=== PATIENT | female | born 1945 | race Caucasian/White ===

== ENCOUNTER 2017-06-27 14:21 | Outpatient (CLI) | payer MEDICARE | END 2017-06-27 14:22 | disposition home or self-care (01) | LOC: BICMAMMO 14:21 | PROVIDERS: ATTEND Family Medicine | DX: Z12.31 Encounter for screening mammogram for malignant neoplasm of breast (principal); Z80.3 Family history of malignant neoplasm of breast | CPT/HCPCS: 77063; 77067 ==

== ENCOUNTER 2017-08-13 08:48 | Emergency (ER) | payer MEDICARE ==
[2017-08-13] MEDS ORDERED: Dextrose 50% Abboject 50 ML SYRINGE ONE (09:20)
[2017-08-13 09:43] LABS: #Basophils 0.1 thou/uL (0.0-0.2); #Eosinphils 0.3 thou/uL (0.0-0.7); #Lymphocytes 3.8 thou/uL (1.20-3.40); #Monocytes 0.9 thou/uL (0.11-0.59); #Neutrophils 5.6 thou/uL (1.40-6.50); %Basophils 1.1 % (0.0-1.0); %Eosinophils 2.9 % (0.0-10.0); %Monocytes 8.7 % (0.0-10.0); %Neutrophils 52.3 % (42.0-75.0); Hemoglobin 13.6 g/dL (12.0-16.0); Mean Corpuscular HGB CONC 32.7 g/dL (32.0-36.0); Mean Corpuscular Hemoglobin 30.8 pg (27.0-31.0); Mean Corpuscular Volume 94.1 fl (81.0-99.0); Mean Platelet Volume 8.4 fL (7.4-10.4); Platelet Count 366 thou/uL (130-400); RBC Distribution Width 12.5 % (11.5-14.5); White Blood Cell (WBC) Count 10.8 thou/uL (4.8-10.8)
[2017-08-13 10:01] LABS: ALT (SGPT) 11 U/L (8-55); AST (SGOT) 13 U/L (5-34); Albumin 4.1 g/dL (3.4-4.8); Alkaline Phosphatase 101 U/L (40-150); Anion Gap 12 mmol/L (10-20); BUN (Urea Nitrogen) 21 mg/dL (9.8-20.1); Bilirubin, Total 0.6 mg/dL (0.2-1.2); Calc. Creatinine Clearance 0 mL/min (70-130); Calcium 10.2 mg/dL (7.8-10.44); Carbon Dioxide 27 mmol/L (23-31); Chloride 107 mmol/L (98-107); Estimated GFR-MDRD 50; Globulin 3.1 g/dL (2.4-3.5); Magnesium 2.2 mg/dL (1.6-2.6); Potassium 3.9 mmol/L (3.5-5.1); Protein, Total 7.2 g/dL (6.0-8.3); Sodium 142 mmol/L (136-145)
[2017-08-13 10:02] LABS: Troponin I Less than 0.010 ng/mL (< 0.028)
--- NOTE | 2017-08-13 10:02 | RAD ---
CHEST ONE VIEW: History: Weakness. Comparison: 2011 FINDINGS: Lungs are slightly hypoinflated with vascular crowding. No focal airspace consolidation, pneumothorax or effusion. Old left sided rib fractures. No acute osseous abnormality. IMPRESSION: No acute intrathoracic abnormality. POS: [facility]
[2017-08-13 10:07] LABS: Glucose 54 mg/dL (83-110)
--- NOTE | 2017-09-21 22:13 | EKG ---
Test Reason : Blood Pressure : / mmHG Vent. Rate : 043 BPM Atrial Rate : 043 BPM P-R Int : 122 ms QRS Dur : 094 ms QT Int : 540 ms P-R-T Axes : 071 -02 017 degrees QTc Int : 456 ms Marked sinus bradycardia Abnormal ECG Confirmed by TRUMAN LAURENT D.O. ([id number]), editor news SHARON CENTENO ([id number]) on 09/21/2017 10:13:10 PM Referred By: MEHRAN Confirmed By:TRUMAN LAURENT D.O.
== END 2017-08-13 12:15 | disposition home or self-care (01) ==
LOC: ERS 08:48
DX: R00.1 Bradycardia, unspecified (principal); I48.91 Unspecified atrial fibrillation; E11.9 Type 2 diabetes mellitus without complications; I10 Essential (primary) hypertension; Z79.4 Long term (current) use of insulin; Z79.899 Other long term (current) drug therapy
CPT/HCPCS: 36416; 71045; 80053; 82553; 83605; 83735; 84484; 85025; 93005; 96374

== ENCOUNTER 2018-06-30 13:13 | Outpatient (CLI) | payer MEDICARE ==
--- NOTE | 2018-07-01 15:00 | MMO ---
FILMS COMPARED: The present examination has been compared to prior imaging studies performed at [facility] on 05/21/2013, 06/01/2014, 06/03/2015 and 06/06/2016. MAMMOGRAM FINDINGS: There are scattered fibroglandular densities. There are benign appearing calcifications seen in the left breast. There are no suspicious masses, calcifications or areas of architectural distortion. IMPRESSION: CALCIFICATIONS IN THE LEFT BREAST ARE BENIGN. A ROUTINE FOLLOW-UP MAMMOGRAM IN 1 YEAR IS RECOMMENDED. ACR BI-RADS Category 2 - Benign finding
== END 2018-06-30 13:14 | disposition home or self-care (01) ==
LOC: BICMAMMO 13:13
PROVIDERS: ATTEND Family Medicine
DX: Z12.31 Encounter for screening mammogram for malignant neoplasm of breast (principal); R92.1 Mammographic calcification found on diagnostic imaging of breast
CPT/HCPCS: 77063; 77067

== ENCOUNTER 2018-12-02 16:14 | Emergency (ER) | payer MEDICARE ==
[~2018-12-02 16:14] MED LIST: ISOVUE-370 76%-LOCM 1 ML ONE
--- NOTE | 2018-12-02 16:55 | RAD ---
2 VIEW CHEST: Date: 12/02/18 INDICATION: Edema, shortness of breath. FINDINGS: There is eventration of the medial right hemidiaphragm. Mild linear densities seen of left lung base. Cardiac silhouette is within normal limits of size. No significant vascular congestion or evidence o f pleural effusion. Osseous degenerative changes are present. IMPRESSION: No acute process identified. POS: [facility]
[2018-12-02 17:43] LABS: #Eosinphils 0.2 thou/uL (0.0-0.7); #Lymphocytes 2.6 thou/uL (1.20-3.40); #Monocytes 0.7 thou/uL (0.11-0.59); #Neutrophils 7.1 thou/uL (1.40-6.50); %Basophils 0.4 % (0.0-1.0); %Eosinophils 2.1 % (0.0-10.0); %Lymphocytes 24.5 % (21.0-51.0); %Monocytes 6.7 % (0.0-10.0); %Neutrophils 66.2 % (42.0-75.0); Hemoglobin 11.2 g/dL (12.0-16.0); Mean Corpuscular HGB CONC 32.3 g/dL (32.0-36.0); Mean Corpuscular Hemoglobin 29.4 pg (27.0-31.0); Mean Corpuscular Volume 91.2 fL (78.0-98.0); Mean Platelet Volume 8.9 fL (7.4-10.4); Platelet Count 266 thou/uL (130-400); RBC Distribution Width 12.6 % (11.5-14.5); Red Blood Cell (RBC) Count 3.79 mill/uL (4.20-5.40); White Blood Cell (WBC) Count 10.7 thou/uL (4.8-10.8)
[2018-12-02 18:02] LABS: ALT (SGPT) 7 U/L (8-55); AST (SGOT) 10 U/L (5-34); Albumin 3.8 g/dL (3.4-4.8); Alkaline Phosphatase 99 U/L (40-150); Anion Gap 12 mmol/L (10-20); BUN (Urea Nitrogen) 23 mg/dL (9.8-20.1); Bilirubin, Total 0.6 mg/dL (0.2-1.2); CK (CPK) 62 U/L (29-168); Calc. Creatinine Clearance 0 mL/min (70-130); Calcium 9.4 mg/dL (7.8-10.44); Carbon Dioxide 28 mmol/L (23-31); Chloride 103 mmol/L (98-107); Estimated GFR-MDRD 43; Glucose 167 mg/dL (83-110); Potassium 4.1 mmol/L (3.5-5.1); Protein, Total 6.8 g/dL (6.0-8.3); Sodium 139 mmol/L (136-145)
--- NOTE | 2018-12-02 18:33 | ULT ---
LEFT LOWER EXTREMITY VENOUS DOPPLER ULTRASOUND: 12/02/2018 HISTORY: Swelling. Edema. Assess for DVT. COMPARISON: None. TECHNIQUE: Multiplanar george-scale sonographic imaging of the venous structures of the left lower extremity litzy campbell with color-flow and spectral analysis. FINDINGS: The left common femoral vein, greater saphenous vein, profunda femoral vein, femoral vein, popliteal vein, and posterior tibial vein are patent. There is normal blood flow, augmentation, and compressio n within the deep venous system on the left. No evidence for DVT. IMPRESSION: No evidence for deep venous thrombosis of the left lower extremity. POS: [facility]
--- NOTE | 2018-12-02 19:03 | CT ---
CTA CHEST WITH CONTRAST: INDICATIONS: Dyspnea. Leg swelling. Shortness of breath. TECHNIQUE: Axial tomograms obtained with multiplanar reconstruction and 3D post processing, following angio prot ocol. FINDINGS: The pulmonary arteries show adequate opacification. No evidence of a proximal pulmonary embolus. Th e distal pulmonary arteries are suboptimally evaluated due to artifact and decreased opacification. The thoracic aorta is unremarkable. No dissection. The lungs appear clear. No infiltrate or effusion. The mediastinum is unremarkable. No adenopathy. Images through the upper abdomen are unremarkable. IMPRESSION: 1. No evidence of pulmonary embolus. 2. No acute lung process identified. POS: [facility]
== END 2018-12-02 19:51 | disposition home or self-care (01) ==
LOC: ERS 16:14
DX: R06.00 Dyspnea, unspecified (principal); I49.9 Cardiac arrhythmia, unspecified; I48.91 Unspecified atrial fibrillation; E66.9 Obesity, unspecified; E11.9 Type 2 diabetes mellitus without complications; I10 Essential (primary) hypertension; Z79.899 Other long term (current) drug therapy
CPT/HCPCS: 71046; 71275; 80053; 82550; 83880; 84484; 85025; 85379; 93005; Q9966

== ENCOUNTER 2018-12-31 14:16 | Outpatient (CLI) | payer MEDICARE ==
--- NOTE | 2019-01-01 10:17 | PFT ---
PATIENT HISTORY: HEIGHT: 65 IN WEIGHT: 250 SMOKER: NEVER HOW LONG: NA PACKS PER DAY: NA PRODUCTIVE COUGH: LUNG DISEASE: PHYSICIAN INTERPRETATION PFT data: 12/31/18 The FEV1 and the FVC are both at the lower limits of normal. The Total lung capacity is 3.75 which is 73% predicted. DLCO is moderately reduced and does not correct for volume. The Maximum Ventilatory Volume is somewhat lower than what would be predicted for this FEV1. IMPRESSION: This is a mild restrictive impairment. Gas exchange is impaired. Patient effort for or neuromuscular disease would also be in the differential given the low Maximum Ventilatory Volume. Draw Frame Tender: VEDA General Expeditor: VEDA BABIN
== END 2018-12-31 14:17 | disposition home or self-care (01) ==
LOC: CP 14:16
PROVIDERS: ATTEND Internal Medicine Cardiovascular Disease
DX: I48.0 Paroxysmal atrial fibrillation (principal); R94.2 Abnormal results of pulmonary function studies
CPT/HCPCS: 94010; 94727; 94729

== ENCOUNTER 2019-09-03 13:27 | Outpatient (CLI) | payer MEDICARE ==
--- NOTE | 2019-09-03 14:29 | MMO ---
Bilateral MAMMO Bilat Screen [facility]. CLINICAL HISTORY: Patient is 74 years old and is seen for screening. The patient has a history of right needle biopsy at age 42 - benign. VIEWS: The views performed were: . FILMS COMPARED: The present examination has been compared to prior imaging studies performed at [facility] on 06/27/2017 and 06/30/2018, and at [facility] on 06/06/2016. This study has been interpreted with the assistance of computer-aided detection. MAMMOGRAM FINDINGS: There are scattered fibroglandular densities. Benign calcifications are noted bilaterally. There are no suspicious masses, suspicious calcifications, or new areas of architectural distortion. IMPRESSION: THERE IS NO MAMMOGRAPHIC EVIDENCE OF MALIGNANCY. A ROUTINE FOLLOW-UP MAMMOGRAM IN 1 YEAR IS RECOMMENDED. THE RESULTS OF THIS EXAM WERE SENT TO THE PATIENT. ACR BI-RADS Category 2 - Benign finding MAMMOGRAPHY NOTE: 1. A negative mammogram report should not delay a biopsy if a dominant of clinically suspicious mass is present. 2. Approximately 10% to 15% of breast cancers are not detected by mammography. 3. Adenosis and dense breasts may obscure an underlying neoplasm. Reported by: KARL RUBALCAVA MD Electonically Signed: [id number]
== END 2019-09-03 13:28 | disposition home or self-care (01) ==
LOC: BICMAMMO 13:27
PROVIDERS: ATTEND Family Medicine
DX: Z12.31 Encounter for screening mammogram for malignant neoplasm of breast (principal); Z91.89 Other specified personal risk factors, not elsewhere classified
CPT/HCPCS: 77063; 77067

== ENCOUNTER 2020-09-05 12:42 | Outpatient (CLI) | payer MEDICARE | END 2020-09-05 12:43 | disposition home or self-care (01) | LOC: BICMAMMO 12:42 | PROVIDERS: ATTEND Family Medicine | DX: Z12.31 Encounter for screening mammogram for malignant neoplasm of breast (principal); Z80.3 Family history of malignant neoplasm of breast; Z91.89 Other specified personal risk factors, not elsewhere classified | CPT/HCPCS: 77063; 77067 ==

== ENCOUNTER 2021-09-08 12:41 | Outpatient (CLI) | payer MEDICARE | END 2021-09-08 12:42 | disposition home or self-care (01) | LOC: BICMAMMO 12:41 | PROVIDERS: ATTEND Family Medicine | DX: Z12.31 Encounter for screening mammogram for malignant neoplasm of breast (principal); Z80.3 Family history of malignant neoplasm of breast | CPT/HCPCS: 77063; 77067 ==

== ENCOUNTER 2022-06-01 10:07 | Day surgery (SDC) | payer MEDICARE ==
[2022-05-29 10:39] VITALS: BMI 40.7
[2022-06-01] MEDS ORDERED: Lidocaine 1% (PF) 30 ML VIAL ONE (12:00)
== END 2022-06-01 12:45 | disposition home or self-care (01) ==
LOC: SDC 10:07
PROVIDERS: ATTEND Internal Medicine Cardiovascular Disease
PROC: 0JH632Z Insertion of Monitoring Device into Chest Subcutaneous Tissue and Fascia, Percutaneous Approach (ICD-10-PCS; principal; 2022-06-01)
DX: I48.0 Paroxysmal atrial fibrillation (principal); I47.1 Supraventricular tachycardia; I13.10 Hypertensive heart and chronic kidney disease without heart failure, with stage 1 through stage 4 chronic kidney disease, or unspecified chronic kidney disease; E11.22 Type 2 diabetes mellitus with diabetic chronic kidney disease; N18.9 Chronic kidney disease, unspecified; E78.5 Hyperlipidemia, unspecified; M19.90 Unspecified osteoarthritis, unspecified site; Z79.4 Long term (current) use of insulin; Z79.85 Long-term (current) use of injectable non-insulin antidiabetic drugs; Z79.890 Hormone replacement therapy; Z79.899 Other long term (current) drug therapy; Z91.041 Radiographic dye allergy status
CPT/HCPCS: 33285; C1764; J2001

== ENCOUNTER 2022-07-02 11:09 | Emergency (ER) | payer MEDICARE ==
[2022-07-02] MEDS ORDERED: Furosemide 40 MG/4 ML VIAL ONE (13:34)
[2022-07-02 14:17] LABS: #Basophils 0.1 thou/uL (0.0-0.2); #Eosinphils 0.2 thou/uL (0.0-0.7); #Lymphocytes 1.8 thou/uL (1.20-3.40); #Monocytes 0.6 thou/uL (0.11-0.59); #Neutrophils 5.6 thou/uL (1.40-6.50); %Basophils 0.8 % (0.0-1.0); %Eosinophils 2.4 % (0.0-10.0); %Lymphocytes 22.3 % (21.0-51.0); %Neutrophils 67.6 % (42.0-75.0); Hemoglobin 11.5 g/dL (12.0-16.0); Mean Corpuscular Hemoglobin 30.2 pg (27.0-31.0); Mean Corpuscular Volume 94.4 fl (78.0-98.0); Mean Platelet Volume 10.7 fL (7.4-10.4); Platelet Count 228 10x3/uL (130-400); RBC Distribution Width 12.4 % (11.5-14.5); Red Blood Cell (RBC) Count 3.83 mill/uL (4.20-5.40); White Blood Cell (WBC) Count 8.3 10x3/uL (4.8-10.8)
[2022-07-02 14:45] LABS: ALT (SGPT) 9 U/L (8-55); AST (SGOT) 13 U/L (5-34); Albumin 3.8 g/dL (3.4-4.8); Alkaline Phosphatase 95 U/L (40-110); Anion Gap 13 mmol/L (10-20); BUN (Urea Nitrogen) 22 mg/dL (9.8-20.1); Bilirubin, Total 0.7 mg/dL (0.2-1.2); Calc. Creatinine Clearance 0 mL/min (70-130); Calcium 9.7 mg/dL (7.8-10.44); Carbon Dioxide 26 mmol/L (23-31); Chloride 106 mmol/L (98-107); Estimated GFR 42; Globulin 2.5 g/dL (2.4-3.5); Glucose 125 mg/dL (83-110); Potassium 4.5 mmol/L (3.5-5.1); Protein, Total 6.3 g/dL (5.8-8.1); Sodium 140 mmol/L (136-145)
== END 2022-07-02 15:21 | disposition home or self-care (01) ==
LOC: ERS 11:09
DX: I11.0 Hypertensive heart disease with heart failure (principal); I50.9 Heart failure, unspecified; R60.0 Localized edema; E11.9 Type 2 diabetes mellitus without complications
CPT/HCPCS: 36415; 36416; 71045; 83880; 84484; 93005; 96374; J1940

== ENCOUNTER 2022-10-17 13:09 | Outpatient (CLI) | payer MEDICARE | END 2022-10-17 13:10 | disposition home or self-care (01) | LOC: BICMAMMO 13:09 | PROVIDERS: ATTEND Family Medicine | DX: Z12.31 Encounter for screening mammogram for malignant neoplasm of breast (principal) | CPT/HCPCS: 77063; 77067 ==

== ENCOUNTER 2023-11-01 14:07 | Outpatient (CLI) | payer MEDICARE | END 2023-11-01 14:08 | disposition home or self-care (01) | LOC: BICMAMMO 14:07 | PROVIDERS: ATTEND Family Medicine | DX: N63.0 Unspecified lump in unspecified breast (principal) | CPT/HCPCS: 76642; 77066; G0279 ==

== ENCOUNTER 2025-03-15 12:43 | Observation (INO) | payer MEDICARE ==
[2025-03-15 13:20] LABS: #Basophils 0.03 10x3/uL (0.0-0.2); #Eosinophils 0.08 10x3/uL (0.0-0.7); #Monocytes 0.63 10x3/uL (0.11-0.59); #Neutrophils 5.79 10x3/uL (1.40-6.50); %Basophils 0.4 % (0.0-1.0); %Eosinophils 1.0 % (0.0-10.0); %Lymphocytes 21.8 % (21.0-51.0); %Monocytes 7.5 % (0.0-10.0); %Neutrophils 69.1 % (42.0-75.0); Hematocrit 33.1 % (36.0-47.0); Hemoglobin 10.6 g/dL (12.0-16.0); Mean Corpuscular Hemoglobin 29.6 pg (27.0-31.0); Mean Corpuscular Volume 92.5 fL (78.0-98.0); Platelet Count 245 10x3/uL (130-400); Red Blood Cell (RBC) Count 3.58 mill/uL (4.20-5.40); White Blood Cell (WBC) Count 8.38 10x3/uL (4.8-10.8)
[2025-03-15 13:38] LABS: ALT (SGPT) Less than 7 U/L (Less than 34); AST (SGOT) 21 U/L (11-34); Albumin 3.3 g/dL (3.1-4.5); Alkaline Phosphatase 47 U/L (40-110); Anion Gap 14 mmol/L (10-20); BUN (Urea Nitrogen) 22 mg/dL (9.8-20.1); Bilirubin, Total 0.5 mg/dL (0.3-1.2); Calc. Creatinine Clearance 0 mL/min (70-130); Calcium 9.1 mg/dL (7.8-10.44); Carbon Dioxide 23 mmol/L (23-31); Chloride 107 mmol/L (98-107); Globulin 2.8 g/dL (2.4-3.5); Glucose 180 mg/dL (83-110); Potassium 4.2 mmol/L (3.5-5.1); Sodium 140 mmol/L (136-145)
[2025-03-15 13:59] LABS: INR-International Normal Ratio 2.2; Prothrombin Time 24.9 sec (12.0-14.7)
[2025-03-15 14:00] LABS: PTT 38.6 sec (22.9-36.1)
[2025-03-15] MEDS ORDERED: Guaifenesin DM 100-10/5 ML UDCUP PO PRN (15:55)
[2025-03-15] MEDS ORDERED: hydrALAZINE 20 MG/ML VIAL SLOW IVP PRN (15:55)
[2025-03-15] MEDS ORDERED: Senokot S 8.6-50 MG TAB PO PRN (15:55)
[2025-03-15] MEDS ORDERED: Acetaminophen 325 MG TAB PO PRN (15:55)
[2025-03-15] MEDS ORDERED: Acetaminophen/Codeine 30-300mg Tablet PO PRN (15:55)
[2025-03-15] MEDS ORDERED: Electrolyte Replacement Protocol 1 EACH FS SCH (16:00)
[2025-03-15] MEDS ORDERED: Dextrose 50% Abboject 50 ML SYRINGE SLOW IVP PRN (16:00)
[2025-03-15] MEDS ORDERED: Glucagon 1 MG/ML KIT IM PRN (16:00)
[2025-03-15] MEDS ORDERED: Potassium Chloride 20 MEQ in Premix 1 BAG IVPB PRN (16:15)
[2025-03-15] MEDS ORDERED: PHOS-NAK 1 PKT PACK PO PRN (16:15)
[2025-03-15] MEDS ORDERED: Magnesium 2 GM/50 ML(in water) 2 GM in Premix 1 BAG IVPB PRN (16:15)
[2025-03-15 19:41] LABS: CAUTI Indications for Culture Alt mental st,lethar; Glucose, Urine (Dipstick) Normal (Negative); Leukocyte Negative Leu/uL (Negative); Protein, Urine (Dipstick) Negative (Neg-Trace); RBC/HPF 0-3 HPF (0-3); Specific Gravity, Urine 1.009 (1.002-1.036); WBC/HPF 0-3 HPF (0-3)
[2025-03-15 19:42] LABS: Bacteria/HPF 1+ HPF (None Seen)
[2025-03-15 19:43] LABS: Urine Culture Reflex No No
[2025-03-15] MEDS: Calcium Carbonate 500 MG ChewTAB PO PRN (20:13)
[2025-03-15] MEDS: Famotidine/PF 20 mg/2ml Vial SLOW IVP SCH (20:22)
[2025-03-15] MEDS: Rosuvastatin 20 MG TAB PO SCH (20:23)
[2025-03-15] MEDS: Insulin Glargine 30 UNITS/0.3 ML VIAL SC SCH (20:24)
[2025-03-15 21:28] VITALS: BMI 30.4
[2025-03-16 04:35] LABS: #Basophils Less than 0.03 10x3/uL (0.0-0.2); #Eosinophils 0.09 10x3/uL (0.0-0.7); #Monocytes 0.61 10x3/uL (0.11-0.59); #Neutrophils 2.58 10x3/uL (1.40-6.50); %Basophils 0.4 % (0.0-1.0); %Eosinophils 1.7 % (0.0-10.0); %Lymphocytes 38.0 % (21.0-51.0); %Monocytes 11.4 % (0.0-10.0); %Neutrophils 48.3 % (42.0-75.0); Hematocrit 27.8 % (36.0-47.0); Hemoglobin 8.8 g/dL (12.0-16.0); Mean Corpuscular Hemoglobin 29.3 pg (27.0-31.0); Mean Corpuscular Volume 92.7 fL (78.0-98.0); Platelet Count 207 10x3/uL (130-400); Red Blood Cell (RBC) Count 3.00 mill/uL (4.20-5.40); White Blood Cell (WBC) Count 5.34 10x3/uL (4.8-10.8)
[2025-03-16 04:45] LABS: INR-International Normal Ratio 1.4; Prothrombin Time 17.6 sec (12.0-14.7)
[2025-03-16 04:58] LABS: ALT (SGPT) Less than 7 U/L (Less than 34); AST (SGOT) 12 U/L (11-34); Albumin 2.7 g/dL (3.1-4.5); Alkaline Phosphatase 35 U/L (40-110); Anion Gap 12 mmol/L (10-20); BUN (Urea Nitrogen) 19 mg/dL (9.8-20.1); Bilirubin, Total 0.3 mg/dL (0.3-1.2); Calc. Creatinine Clearance 48 mL/min (70-130); Calcium 8.7 mg/dL (7.8-10.44); Carbon Dioxide 25 mmol/L (23-31); Cardiac Risk 2.7 (Less than 4.5); Chloride 111 mmol/L (98-107); Cholesterol 107 mg/dl (< 200 Desired); Globulin 2.3 g/dL (2.4-3.5); Glucose 77 mg/dL (83-110); HDL Cholesterol 40 mg/dL (>60 Neg Risk); LDL Cholesterol, Calculated 54 mg/dL; Potassium 3.9 mmol/L (3.5-5.1); Sodium 144 mmol/L (136-145); Triglycerides 67 mg/dL (Less than 150)
[2025-03-16 16:25] VITALS: BP 156/84; TEMP 97.4
[2025-03-16] MEDS ORDERED: Famotidine/PF 20 mg/2ml Vial SLOW IVP SCH (21:00)
== END 2025-03-16 17:40 | disposition home or self-care (01) ==
LOC: ERS 12:43 → SUATTDRO 12:43 → 2SE 15:34
PROVIDERS: ADMIT Internal Medicine; ATTEND Hospitalist
PROC: B24BZZZ Ultrasonography of Heart with Aorta (ICD-10-PCS; principal; 2025-03-15)
DX: G45.9 Transient cerebral ischemic attack, unspecified (principal); I08.1 Rheumatic disorders of both mitral and tricuspid valves; I10 Essential (primary) hypertension; I48.91 Unspecified atrial fibrillation; E11.9 Type 2 diabetes mellitus without complications; Z85.3 Personal history of malignant neoplasm of breast; Z90.49 Acquired absence of other specified parts of digestive tract; Z98.890 Other specified postprocedural states; Z91.041 Radiographic dye allergy status; Z79.4 Long term (current) use of insulin; Z79.85 Long-term (current) use of injectable non-insulin antidiabetic drugs; Z79.899 Other long term (current) drug therapy
CPT/HCPCS: 70450; 70551; 71045; 80053 ×2; 80061; 81001; 82962 ×2; 84484; 85025 ×2; 85610 ×2; 85730; 93005; 93306; 94760; 95700; 95711; 95957; 99285; J1308; 36415; 36416; 96374; G0378; J1815